=== PATIENT | female | born 1945 | race Caucasian/White ===

== ENCOUNTER → 2021-10-05 | Day surgery (SDC) | payer OTHER ==
[~2021-10-05] MED LIST: ALBUTEROL1.25 MG/3 INH; ALBUTEROL2.5 MG/3 M INH; ASPIRIN81 MG PO; BENADRYL25 MG PO; BENZONATATE100 MG PO; CHRONULAC20 GM/30 M PO; EUTHYROX75 MCG PO; FEROSUL325 MG PO; FUROSEMIDE40 MG PO; GENERLAC10 GM/15 M PO; GLIPIZIDE XL2.5 MG PO; GLUCOTROL XL2.5 MG PO; HYDROCODON-ACE1 EAC4 PO; ISOSORBIDE MONO60 MG PO; LEVOFLOXACIN750 MG PO; LOPRESSOR 25 MG25 MG PO; NITROGLYCERIN0.4 MG SL; OMEPRAZOLE20 MG PO; ONDANSETRON ODT4 MG PO; POTASSIUM CHLO10 MEQ PO; PRILOSEC OTC20 MG PO; PROVENTIL HFA6.7 GM INH; SINGULAIR10 MG PO; SPIRONOLACTONE100 MG PO; ST. JOSEPH ASPI81 M1 PO; SYNTHROID75 MCG PO; XANAX0.25 MG PO; ZOCOR40 MG PO
== END | disposition home or self-care (01) ==
LOC: OR 07:51
DX: K74.60 Unspecified cirrhosis of liver (principal); K76.6 Portal hypertension; K31.89 Other diseases of stomach and duodenum; K72.90 Hepatic failure, unspecified without coma; I85.10 Secondary esophageal varices without bleeding; I11.0 Hypertensive heart disease with heart failure; I50.9 Heart failure, unspecified; E78.5 Hyperlipidemia, unspecified; K21.9 Gastro-esophageal reflux disease without esophagitis; E03.9 Hypothyroidism, unspecified; J45.909 Unspecified asthma, uncomplicated; Z90.49 Acquired absence of other specified parts of digestive tract; Z79.82 Long term (current) use of aspirin; Z79.899 Other long term (current) drug therapy
CPT/HCPCS: 82962; J2370; J2704; J7040

== ENCOUNTER 2021-10-07 13:34 | Inpatient (IN) | payer OTHER ==
[~2021-10-07] VITALS: Ht 149.9 cm; Wt 80.0 kg
[2021-10-07 14:50] LABS: RED BLOOD COUNT 3.57 M/UL (4.00-5.10)
[2021-10-07 16:11] LABS: BUN/CREATININE RATIO 15 (0-10)
[2021-10-08 07:02] LABS: WHITE BLOOD COUNT 9.9 K/UL (4.5-11.0)
[2021-10-08 07:04] LABS: HEMOGLOBIN 10.4 gm/dl (12.3-15.3); RED BLOOD COUNT 2.92 M/UL (4.00-5.10)
[2021-10-09 08:06] LABS: HEMOGLOBIN 11.3 gm/dl (12.3-15.3); RED BLOOD COUNT 3.13 M/UL (4.00-5.10); WHITE BLOOD COUNT 10.9 K/UL (4.5-11.0)
[2021-10-10 04:29] LABS: HEMOGLOBIN 10.1 gm/dl (12.3-15.3)
[2021-10-10 04:33] LABS: RED BLOOD COUNT 2.79 M/UL (4.00-5.10); WHITE BLOOD COUNT 16.2 K/UL (4.5-11.0)
[2021-10-11 06:37] LABS: HEMOGLOBIN 9.2 gm/dl (12.3-15.3); RED BLOOD COUNT 2.55 M/UL (4.00-5.10)
[2021-10-12 04:45] LABS: HEMOGLOBIN 9.6 gm/dl (12.3-15.3); RED BLOOD COUNT 2.66 M/UL (4.00-5.10)
[2021-10-12 04:56] LABS: WHITE BLOOD COUNT 9.5 K/UL (4.5-11.0)
[2021-10-12 05:21] LABS: BUN/CREATININE RATIO 15 (0-10)
--- NOTE | 2021-10-12 20:47 | NUR ---
PATIENT IV OUT. BUE EDEMA NOTED. LAST IV WAS OBTAINED VIA ULTRASOUND GUIDE. NOTIFIED ICU OF NEED FOR US GUIDED IV.
[2021-10-14 03:21] LABS: HEMOGLOBIN 9.4 gm/dl (12.3-15.3); RED BLOOD COUNT 2.62 M/UL (4.00-5.10); WHITE BLOOD COUNT 9.8 K/UL (4.5-11.0)
[2021-10-15 07:04] LABS: RED BLOOD COUNT 2.5 M/UL (4.00-5.10); WHITE BLOOD COUNT 8.8 K/UL (4.5-11.0)
[2021-10-15 07:27] LABS: BUN/CREATININE RATIO 17 (0-10)
[2021-10-16 06:46] LABS: HEMOGLOBIN 10.2 gm/dl (12.3-15.3)
[2021-10-16 06:52] LABS: RED BLOOD COUNT 2.85 M/UL (4.00-5.10); WHITE BLOOD COUNT 11.7 K/UL (4.5-11.0)
[2021-10-17 02:35] LABS: WHITE BLOOD COUNT 11.2 K/UL (4.5-11.0)
[2021-10-17 02:37] LABS: RED BLOOD COUNT 2.52 M/UL (4.00-5.10)
[2021-10-18 04:04] LABS: HEMOGLOBIN 9.1 gm/dl (12.3-15.3); RED BLOOD COUNT 2.53 M/UL (4.00-5.10)
[2021-10-18] MEDS ORDERED: XIFAXAN 550 MG550 MG PO (08:28)
[2021-10-18] MEDS ORDERED: PROTONIX IV40 MG IVP (08:28)
[2021-10-18] MEDS ORDERED: MEGACE 400400 MG/10 PO (08:28)
[2021-10-18] MEDS ORDERED: REGLAN5 MG PO ×2 (08:59→09:04)
[2021-10-18] MEDS ORDERED: HUMALOG 10100 UNITS/ SC (08:59)
== END 2021-10-18 12:55 | disposition short-term general hospital (02) | DRG 682 ==
LOC: ER1 13:34 → CDU 18:04 → M/S 18:04
PROVIDERS: Internal Medicine; Physician Assistant; ADMIT Internal Medicine
DX: N17.9 Acute kidney failure, unspecified (principal); G93.41 Metabolic encephalopathy; I13.0 Hypertensive heart and chronic kidney disease with heart failure and stage 1 through stage 4 chronic kidney disease, or unspecified chronic kidney disease; Z20.822 Contact with and (suspected) exposure to COVID-19; K76.6 Portal hypertension; E87.1 Hypo-osmolality and hyponatremia; I85.00 Esophageal varices without bleeding; E87.2 Acidosis; E44.0 Moderate protein-calorie malnutrition; K75.81 Nonalcoholic steatohepatitis (NASH); E86.1 Hypovolemia; N18.30 Chronic kidney disease, stage 3 unspecified; K72.90 Hepatic failure, unspecified without coma; K74.60 Unspecified cirrhosis of liver; I50.9 Heart failure, unspecified; L89.152 Pressure ulcer of sacral region, stage 2; M25.552 Pain in left hip; E03.9 Hypothyroidism, unspecified; L89.522 Pressure ulcer of left ankle, stage 2; R74.01 Elevation of levels of liver transaminase levels; E86.0 Dehydration; K31.89 Other diseases of stomach and duodenum; R62.7 Adult failure to thrive; T50.2X5A Adverse effect of carbonic-anhydrase inhibitors, benzothiadiazides and other diuretics, initial encounter; L89.512 Pressure ulcer of right ankle, stage 2; E11.22 Type 2 diabetes mellitus with diabetic chronic kidney disease; Z90.49 Acquired absence of other specified parts of digestive tract; Z91.013 Allergy to seafood; Z99.3 Dependence on wheelchair; Z68.27 Body mass index [BMI] 27.0-27.9, adult
CPT/HCPCS: 36415; 70450; 71045; 72040; 72125; 73060; 73090; 73502; 74018; 78264; 80053; 81001; 82140; 82550; 82553; 82962; 83036; 83605; 83735; 83880; 84100; 84439; 84443; 84484; 85025; 85027; 85610; 87040; 93005; 94640; 94760; 96374; 96375; 97110; 97110-GP-CQ; 97116; 97116-GP-CQ; 97161; 97166; 97530; 99285; A9541; C9113; J1885; J2405; J7030; J7070; P9047